=== PATIENT | female | born 1945 | race Two or more races ===

== ENCOUNTER 2020-04-04 12:34 | Inpatient (IN) | payer MEDICAID ==
[~2020-04-04] VITALS: Ht 160 cm; Wt 74.8 kg
[~2020-04-04 12:34] MED LIST: ALBUMIN 25% 100 ML IV SCH
[2020-04-04 13:26] VITALS: BP 104/74
[2020-04-04 15:22] LABS: Basophils # (auto) 0 10 ^3/uL (0-0.2); Basophils % (auto) 0.2 % (0.0-2.0); Eosinophils # (auto) 0 10 ^3/uL (0-0.8); Eosinophils % (auto) 0.1 % (0.0-7.0); Hematocrit 42.7 % (36.0-46.0); Hemoglobin 14.3 g/dL (12.2-16.2); Lymphocytes # (auto) 1.1 10 ^3/uL (0.4-5.4); Lymphocytes % (auto) 17.3 % (10.0-50.0); Mean Corpuscular Hemoglobin 30.1 pg (28.0-32.0); Mean Corpuscular Hgb Conc. 33.5 g/dL (32.0-36.0); Mean Corpuscular Volume 89.9 fL (80.0-100.0); Monocytes # (auto) 0.6 10 ^3/uL (0-1.3); Monocytes % (auto) 8.6 % (0.0-12.0); Neutrophils # (auto) 4.8 10 ^3/uL (1.6-8.6); Neutrophils % (auto) 73.8 % (37.0-80.0); Nucleated Red Blood Cells % 0.3 %; Platelet Count (auto) 191 10^3/uL (140-450); Red Blood Cells 4.75 10^6/uL (4.0-5.20); Red Cell Distribution Width 14.8 % (11.8-14.3); White Blood Cell 6.5 10^3/uL (4.4-10.8)
[2020-04-04 15:35] LABS: Albumin 3.2 g/dL (3.4-5.0); Calcium 8.7 mg/dL (8.5-10.1); Potassium 3.9 mmol/L (3.5-5.1)
[2020-04-04 15:37] LABS: BUN/Creatinine Ratio 29.6
[2020-04-04 15:40] LABS: Bilirubin, Total 0.8 mg/dL (0.2-1.0); Total Protein 7.6 g/dL (6.4-8.2)
[2020-04-04] MEDS ORDERED: ACETAMINOPHEN 325 MG TAB PO ONE (15:45)
[2020-04-04] MEDS ORDERED: PANTOPRAZOLE 40 MG TAB PO ONE (16:45)
[2020-04-04] MEDS ORDERED: ONDANSETRON ODT 4 MG TAB PO ONE (16:45)
[2020-04-04] MEDS ORDERED: ACETAMINOPHEN/CODEINE#3 (300/30mg) TAB PO ONE (16:45)
[2020-04-04] MEDS ORDERED: MORPHINE SULF INJ 2 MG/ML SYRINGE 1ML IV PRN ×3 (17:30→19:30)
[2020-04-04] MEDS ORDERED: LACTULOSE 20Gm/30ML SOLN PO ONE (17:30)
[2020-04-04] MEDS ORDERED: NITROGLYCERIN 0.4 MG SL TAB SL PRN ×2 (17:30→19:30)
[2020-04-04 18:35] LABS: Amylase 33 U/L (25-115); Lipase 52 U/L (73-393)
[2020-04-04] MEDS ORDERED: LORazepam 0.5 MG TAB PO PRN (19:30)
[2020-04-04] MEDS ORDERED: HYDROcodone-ACET 5/325MG TAB PO PRN (19:30)
[2020-04-04] MEDS ORDERED: DEXTROSE (50%) 50ML SYRG IV PRN (19:30)
[2020-04-04] MEDS ORDERED: ACETAMINOPHEN 325 MG TAB PO PRN (19:30)
[2020-04-04] MEDS ORDERED: ALUM & MAG HYDROX-SIMETH LIQ(MAALOX) 30 ML PO PRN (19:30)
[2020-04-04] MEDS ORDERED: ONDANSETRON HCL 4 MG/2 ML VIAL IV PRN (19:30)
[2020-04-04] MEDS ORDERED: SODIUM CHLORIDE 0.9% 1,000 ML IV SCH (19:30)
[2020-04-04] MEDS ORDERED: LACTULOSE 20Gm/30ML SOLN PO PRN (19:30)
[2020-04-04] MEDS ORDERED: ALBUMIN 25% 100 ML IV ONE (21:10)
[2020-04-04] MEDS ORDERED: DOCUSATE SOD 100 MG CAP PO SCH (22:00)
[2020-04-04] MEDS ORDERED: APIXABAN 2.5 MG TAB PO SCH (22:00)
[2020-04-04] MEDS ORDERED: FAMOTIDINE (10MG/ML) 2ML VL IV SCH (22:00)
[2020-04-04] MEDS ORDERED: InsuLIN REG 1unit/0.01ml Soln (100units/ml) SC SCH (22:00)
[2020-04-04] MEDS ORDERED: GABAPENTIN 100 MG CAP PO SCH (22:00)
[2020-04-04] MEDS ORDERED: ACCU-CHEK COMFORT CURVE STRIP VI SCH (22:00)
[2020-04-04] MEDS ORDERED: CARVEDILOL 3.125 MG TAB PO SCH (22:00)
[2020-04-05 05:58] LABS: Urine Bacteria FEW /hpf (None Seen); Urine Blood 2+ /uL (Negative); Urine Specific Gravity 1.022 (1.001-1.035); Urine WBC 25 /hpf (0 - 5)
[2020-04-05] MEDS ORDERED: FUROSEMIDE 20 MG/2 ML VIAL IV SCH (06:00)
[2020-04-05 06:37] LABS: Amphetamine Screen, Urine NEGATIVE (NEGATIVE); Barbiturate Scree,Urine NEGATIVE (NEGATIVE); Benzodiazephine Screen, Urine NEGATIVE (NEGATIVE); Cannabinoid Screen, Urine NEGATIVE (NEGATIVE)
[2020-04-05 06:40] LABS: Alcohol, Urine < 3.0 mg/dL (0-10); Cocaine Screen, Urine NEGATIVE (NEGATIVE); Opiate Scree,Urine NEGATIVE (NEGATIVE); Phencyclidine Screen, Urine NEGATIVE (NEGATIVE)
[2020-04-05] MEDS ORDERED: InsuLIN REG 1unit/0.01ml Soln (100units/ml) SC SCH (07:00)
[2020-04-05] MEDS ORDERED: LEVOTHYROXINE SODIUM 50 MCG TAB PO SCH (07:00)
[2020-04-05] MEDS ORDERED: LOSARTAN POTASSIUM 25 MG TAB PO SCH (10:00)
[2020-04-05] MEDS ORDERED: CHOLECALCIFEROL (VITD3) 2,000 UNIT CAP PO SCH (10:00)
[2020-04-05] MEDS ORDERED: SERTRALINE HCL 50 MG TAB PO SCH (10:00)
[2020-04-05] MEDS ORDERED: ASPirin 81 mg TAB PO SCH (10:00)
[2020-04-05] MEDS ORDERED: AMIODARONE HCL 200 MG TAB PO SCH (10:00)
== END 2020-04-04 22:00 | disposition left against medical advice (07) | DRG 254 ==
LOC: ER 12:34 → TELE 17:24
PROVIDERS: ADMIT Hospitalist; ATTEND Internal Medicine
DX: K92.1 Melena (principal); I11.0 Hypertensive heart disease with heart failure; I50.23 Acute on chronic systolic (congestive) heart failure; K59.00 Constipation, unspecified; K80.20 Calculus of gallbladder without cholecystitis without obstruction; D68.4 Acquired coagulation factor deficiency; E03.9 Hypothyroidism, unspecified; E11.9 Type 2 diabetes mellitus without complications; E44.1 Mild protein-calorie malnutrition; E78.5 Hyperlipidemia, unspecified; G89.29 Other chronic pain; I48.19 Other persistent atrial fibrillation; I50.82 Biventricular heart failure; I70.8 Atherosclerosis of other arteries; N39.0 Urinary tract infection, site not specified; Z79.4 Long term (current) use of insulin; Z95.1 Presence of aortocoronary bypass graft; M54.5 Low back pain
CPT/HCPCS: 36415; 71045; 74176; 80053; 80307; 81001; 82150; 83036; 83690; 83880; 84484; 85025; 87040; 87086; 93005; G0378